=== PATIENT | male | born 1995 | race Caucasian/White ===

== ENCOUNTER 2016-08-22 18:53 | Emergency (ER) | payer OTHER ==
--- NOTE | 2016-08-22 19:16 | ER Document Report ---
ED General - General Stated Complaint: POSSIBLE SEIZURE Time seen by provider: 19:13 Mode of Arrival: Medic Information source: Patient Notes: This is a 21 year old man with a history of multiple concussions in the past was brought in by EMS after a possible seizure at work. 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 He went to work at 5 PM and at 6 PM, coworkers report that he was standing by the girl and became "red" and then "riged" and then collapsed with seizure activity. Patient states he does not remember the event. TRAVEL OUTSIDE OF THE [place] IN LAST 30 DAYS: No - HPI Onset: Just prior to arrival Onset/Duration: Sudden Quality of pain: No pain Severity: None Pain Level: Denies Associated symptoms: denies: Chills, Fever Exacerbated by: Denies Relieved by: Denies Similar symptoms previously: No Recently seen / treated by doctor: No - Related Data Allergies/Adverse Reactions: No Known Allergies Allergy (Verified 11/05/15 10:52) Past Medical History - General Information source: Patient - Social History Smoking Status: Never Smoker Cigarette use (# per day): No Chew tobacco use (# tins/day): No Frequency of alcohol use: None Drug Abuse: denies: Cocaine, Marijuana, Methamphetamine Family History: Reviewed & Not Pertinent Patient has suicidal ideation: No Patient has homicidal ideation: No - Medical History Medical History: Negative Neurological Medical History: Reports: Other - Concussions in the past Past Surgical History: Reports: Hx Orthopedic Surgery - left hand, Hx Tonsillectomy - adnoidectomy - Immunizations Hx Diphtheria, Pertussis, Tetanus Vaccination: Yes Review of Systems - Review of Systems Notes: Review of systems: Constitutional: Denies fever, chills. EENT: Denies ear pain, sinus tenderness, throat pain, throat swelling. Cardiovascular: Denies chest pain, palpitations, dyspnea or edema. Respiratory: Denies wheezing, cough, hemoptysis. Abdomen: Denies abdominal pain, nausea, vomiting, diarrhea. Denies BRBPR or melena. Genitourinary: Denies dysuria, pyuria, hematuria, flank pain. Musculoskeletal: denies joint pain or swelling, denies back pain. Neurologic: He does report a headache, no photophobia, neck stiffness, weakness. Denies loss of bowel or bladder function. Denies saddle anesthesia. No incontinence. Skin: Denies rash, lesions. Physical Exam - Vital signs Vitals: Temp Pulse Resp BP Pulse Ox 98.0 F 87 20 118/65 98 08/22/16 19:01 08/22/16 19:01 08/22/16 19:01 08/22/16 19:01 08/22/16 19:01 Notes: Physical exam: GENERAL: 21-year-old man, alert and oriented 3, no acute distress. HEAD: Normocephalic, patient does have some small contusion in the right upper periorbital area. EYES: Pupils equal round and reactive to light, extraocular movements intact, sclera anicteric, conjunctiva are normal. ENT: TMs normal, nares patent, oropharynx clear without exudates. Moist mucous membranes. NECK: Normal range of motion, supple without lymphadenopathy or JVD. LUNGS: Breath sounds clear to auscultation bilaterally and equal. No wheezes rales or rhonchi. HEART: Regular rate and rhythm without murmurs, rubs or gallops. ABDOMEN: Soft, normoactive bowel sounds. No tenderness to palpation. No guarding, no rebound. No masses appreciated. EXTREMITIES: Normal range of motion, no pitting or edema. No clubbing or cyanosis. NEUROLOGICAL: Cranial nerves II through XII grossly intact. Motor 5 over 5, sensory grossly intact, cerebellar intact, Normal speech. PSYCH: Normal mood, normal affect. SKIN: Warm, Dry, normal turgor, no rashes or lesions noted. Course - Re-evaluation Re-evalutation: 08/22/16 23:58 I've had a long discussion with the patient. He adamantly denies any alcohol, drug us. He does appear somewhat evasive. I think he may have had a seizure tonight and I think his had lack of sleep and his urine tox screen was positive for cocaine. While this study was not confirmed, I'm not sure it needs to be. The patient is denying using this drug. I have reiterated to him that lack of sleep, excessive stress and bad habits (such as drug use) will contribute to seizure activity. He does have a history of multiple concussions and he may have a lower threshold for seizures. I have referred him to a neurologist for follow-up. - Vital Signs Vital signs: Temp Pulse Resp BP Pulse Ox 97.7 F 87 16 121/79 96 08/22/16 20:04 08/22/16 19:01 08/22/16 19:30 08/22/16 20:01 08/22/16 20:01 - Laboratory Result Diagrams: 08/22/16 19:45 08/22/16 19:45 Laboratory results interpreted by me: 08/22/16 08/22/16 19:45 20:20 WBC 12.6 H Seg Neutrophils % 81.2 H Lymphocytes % 10.5 L Absolute Neutrophils 10.2 H Urine Ketones TRACE H - Diagnostic Test Radiology reviewed: Image reviewed, Reports reviewed - CT of the head shows no acute bleed or mass effect. Discharge - Discharge Clinical Impression: Seizure Condition: Stable Disposition: HOME, SELF-CARE Instructions: New Seizure ([facility]) Additional Instructions: Recommendations: You have a history of multiple concussions in the past, it is important that you get: Good sleep (avoid sleep deprivation, this lowers the seizure threshold). Avoid excessive stress. Eat well Avoid any bad habits I would like you to follow-up with a neurologist: I gave the number for Dr. Freire. Return to work on Wednesday. Rest tomorrow. Return to the emergency room for any problems. Forms: Return to Work Referrals: WENDIE MARCOS DO [Primary Care Provider] - Follow up in 3-5 days BELGICA FREIRE MD [ACTIVE STAFF] - Follow up as needed (Call the office on Wednesday for the next available appointment.)
[2016-08-22 19:59] LABS: ABSOLUTE EOSINOPHILS # (AUTO) 0.1 10^3/uL (0.0-0.6); ABSOLUTE LYMPHOCYTES (AUTO) 1.3 10^3/uL (0.5-4.7); ABSOLUTE MONOCYTES (AUTO) 0.9 10^3/uL (0.1-1.4); ABSOLUTE NEUT (AUTO) 10.2 10^3/uL (1.7-8.2); BASOPHILS % (AUTO) 0.3 % (0-2); EOSINOPHILS % (AUTO) 0.5 % (0-6); HEMATOCRIT 46.2 % (37.9-51.0); HEMOGLOBIN 15.7 g/dL (13.5-17.0); HGB HCT DIFFERENCE 0.9; LYMPHOCYTES % (AUTO) 10.5 % (13-45); MEAN CORPUSCULAR HEMOGLOBIN 32.1 pg (27.0-33.4); MEAN CORPUSCULAR HGB CONC 34.1 g/dL (32.0-36.0); MEAN CORPUSCULAR VOLUME 94 fl (80-97); MONOCYTES % (AUTO) 7.5 % (3-13); RED CELL DISTRIBUTION WIDTH 12.9 % (11.5-14.0); SEGMENTED NEUTROPHILS % (AUTO) 81.2 % (42-78); WHITE BLOOD COUNT 12.6 10^3/uL (4.0-10.5)
[2016-08-22] MEDS ORDERED: ACETAMINOPHEN 325 MG TABLET PO ONE (19:59)
[2016-08-22] MEDS ORDERED: LORAZEPAM INJ 2 MG/1 ML VIAL IV ONE (19:59)
[2016-08-22] MEDS ORDERED: NORMAL SALINE 1000 ML 1,000 ML IV PRN (20:27)
[2016-08-22 20:33] LABS: APPEARANCE,URINE CLEAR; BILIRUBIN,URINE NEGATIVE (NEGATIVE); GLUCOSE, URINE NEGATIVE (NEGATIVE); KETONES,URINE TRACE mg/dL (NEGATIVE); LEUKOCYTE ESTERASE,URINE NEGATIVE (NEGATIVE); NITRITE,URINE NEGATIVE (NEGATIVE); PROTEIN,URINE NEGATIVE (NEGATIVE); UROBILINOGEN,URINE NEGATIVE mg/dL (<2.0)
[2016-08-22 20:33] LABS: ALANINE AMINOTRANSFERASE 43 U/L (21-72); ALBUMIN 4.9 g/dL (3.5-5.0); ALKALINE PHOSPHATASE 54 U/L (38-126); ANION GAP 13 (5-19); ASPARTATE AMINO TRANSFERASE 30 U/L (17-59); BILIRUBIN,TOTAL 0.8 mg/dL (0.2-1.3); BLOOD UREA NITROGEN 14 mg/dL (7-20); CARBON DIOXIDE 25 mmol/L (22-30); CHLORIDE 102 mmol/L (98-107); CREATININE RESULT 1.04 mg/dL (0.52-1.25); GLUCOSE 99 mg/dL (75-110); POTASSIUM 4.6 mmol/L (3.6-5.0); SODIUM 139.6 mmol/L (137-145); TOTAL PROTEIN 7.5 g/dL (6.3-8.2)
[2016-08-22 20:46] LABS: URINE BARBITURATES SCREEN NEGATIVE; URINE METHADONE SCREEN NEGATIVE; URINE OPIATES LOW NEGATIVE; URINE PHENCYCLIDINE SCREEN NEGATIVE
[2016-08-23 00:03] VITALS: BP 123/80
== END 2016-08-23 00:10 | disposition home or self-care (01) ==
LOC: ER 18:53
DX: S00.11XA Contusion of right eyelid and periocular area, initial encounter (principal); X58.XXXA Exposure to other specified factors, initial encounter; Y93.89 Activity, other specified; Y99.0 Civilian activity done for income or pay; R56.9 Unspecified convulsions; R51 Headache; Z87.820 Personal history of traumatic brain injury
CPT/HCPCS: 99285; 96361; 96374; 36415; 85025; 80053; 81001; 80307; 70450; J2060; J7030

== ENCOUNTER 2016-09-25 18:49 | Emergency (ER) | payer OTHER ==
--- NOTE | 2016-09-25 18:54 | ER Document Report ---
ED Trauma/MVC - General Stated Complaint: EYE LACERATION Time Seen by Provider: 09/25/16 18:53 Mode of Arrival: Medic Information source: Emergency Med Personnel TRAVEL OUTSIDE OF THE [place] IN LAST 30 DAYS: No - HPI Patient complains to provider of: seizure, head injury, eyebrow laceration Occurred: Just prior to arrival Where: Work Mechanism: Fall Loss of consciousness: Brief Quality of pain: Achy Location of injury/pain: Face, Head Prehospital interventions: C-collar, Backboard Notes: Patient is a 21-year-old male with a history of seizures in the past who presents to the emergency room via EMS as a TRAUMA ALERT for head injury with confusion, apparently patient had a seizure while at work, fell and hit his head on the sink, causing a laceration to the right eyebrow, and has been postictal since then, he was combative with EMS, and took his c-collar off prior to arrival in the emergency room, patient does have a history of similar episode which he was treated in this emergency room for, he does admit to lack of sleep over the last 24 hours, as he was starting a new job today, on his previous visit he was also positive for cocaine Tolley Coma Scale Eye Opening: Spontaneous Tolley Coma Scale Verbal: Confused Tolley Coma Scale Motor: Obeys Commands Emily Coma Scale Total: 14 - Related Data Allergies/Adverse Reactions: No Known Allergies Allergy (Verified 09/25/16 19:50) Past Medical History - General Information source: Patient - Social History Smoking Status: Unknown if Ever Smoked Family History: Reviewed & Not Pertinent Past Surgical History: Reports: Hx Orthopedic Surgery - left hand, Hx Tonsillectomy - adnoidectomy - Immunizations Hx Diphtheria, Pertussis, Tetanus Vaccination: Yes Review of Systems - Review of Systems Constitutional: No symptoms reported EENT: No symptoms reported Cardiovascular: No symptoms reported Respiratory: No symptoms reported Gastrointestinal: No symptoms reported Genitourinary: No symptoms reported Male Genitourinary: No symptoms reported Musculoskeletal: See HPI Skin: See HPI Hematologic/Lymphatic: No symptoms reported Neurological/Psychological: Seizure -: Yes All other systems reviewed and negative Physical Exam - Vital signs Vitals: Resp 18 09/25/16 18:50 Interpretation: Normal - General General appearance: Alert In distress: Mild - Confused, postictal - HEENT Head: Normocephalic, Other - 4 cm laceration in right eyebrow, 1 cm superficial laceration to nasal bridge Eyes: Normal Conjunctiva: Normal Extraocular movements intact: Yes Eyelashes: Normal Pupils: PERRL Ears: Normal External canal: Normal Tympanic membrane: Normal Nasal: Other - 1 cm laceration to nasal bridge Mucous membranes: Normal Pharynx: Normal Neck: Other - Paraspinal muscle tenderness, no midline tenderness or bony deformity - Respiratory Respiratory status: No respiratory distress Chest status: Nontender Breath sounds: Normal Chest palpation: Normal - Cardiovascular Rhythm: Regular Heart sounds: Normal auscultation Murmur: No - Abdominal Inspection: Normal Distension: No distension Bowel sounds: Normal Tenderness: Nontender Organomegaly: No organomegaly - Back Back: Normal, Nontender - Extremities General upper extremity: Normal inspection, Nontender, Normal color, Normal ROM , Normal temperature General lower extremity: Normal inspection, Nontender, Normal color, Normal ROM , Normal temperature, Normal weight bearing. No: Gordo's sign - Neurological Neuro grossly intact: Yes Cognition: Normal Orientation: AAOx4 Emily Coma Scale Eye Opening: Spontaneous Tolley Coma Scale Verbal: Oriented Emily Coma Scale Motor: Obeys Commands Tolley Coma Scale Total: 15 Speech: Normal Motor strength normal: LUE, RUE, LLE, RLE Sensory: Normal - Psychological Associated symptoms: Normal affect, Normal mood - Skin Skin Temperature: Warm Skin Moisture: Dry Skin Color: Normal Course - Re-evaluation Re-evalutation: 09/26/16 02:57 Patient feeling much better, wounds were repaired using Dermabond and sutures, see procedure notes, imaging findings were discussed with patient and family members at bedside, he does report feeling much better and was able to ambulate without difficulty in the emergency room, patient discharged with pain medication and information for follow-up as well as instructions for wound care , patient and family members acknowledge understanding and agreement with this plan - Vital Signs Vital signs: Temp Pulse Resp BP Pulse Ox 98.1 F 16 128/81 H 96 09/25/16 19:01 09/25/16 23:01 09/25/16 23:01 09/25/16 23:01 - Laboratory Result Diagrams: 09/25/16 19:00 09/25/16 19:00 Laboratory results interpreted by me: 09/25/16 09/25/16 19:00 19:00 Monocytes % 13.3 H Carbon Dioxide 15 L Anion Gap 24 H Glucose 116 H Calcium 10.3 H Albumin 5.1 H - Diagnostic Test Radiology reviewed: Image reviewed, Reports reviewed Procedures - Laceration/Wound Repair Mid-nasal bridge Time completed: 21:39 Wound length (cm): 1 Wound's Depth, Shape: Irregular Laceration pre-procedure: Sterile PPE donned Wound explored: Clean Wound Repaired With: Dermabond Post-procedure NV exam normal: Yes Complications: No Adult Head Front/Back picture: 1 - 1.5 cm laceration Right Time completed: 21:40 Wound length (cm): 4 Wound's Depth, Shape: Irregular - Marne-shaped Laceration pre-procedure: Sterile PPE donned, Chloraprep applied, Sterile drapes applied Anesthetic type: 1% Lidocaine w/epi Volume Anesthetic (mLs): 8 Wound explored: Clean Irrigated w/ Saline (mLs): 300 Wound Repaired With: Sutures Suture Size/Type: 6:0, Nylon Number of Sutures: 6 Layer Closure?: Yes Deep Layer Suture Size/Type: 5:0, Other - Vicryl Number Deep Layer Sutures: 2 Post-procedure wound care: Sterile dressing applied Post-procedure NV exam normal: Yes Complications: No Adult Head Front/Back picture: 1 - 4 cm laceration Discharge - Discharge Clinical Impression: Seizure Head injury Qualifiers: Encounter type: initial encounter Qualified Code(s): S09.90XA - Unspecified injury of head, initial encounter Condition: Stable Disposition: HOME, SELF-CARE Instructions: Facial Laceration ([facility]), Head Injury Precautions ([facility]), Laceration Care ([facility]), New Seizure ([facility]), Neurologist Additional Instructions: Follow-up with a primary care provider and neurologist in the next 2-3 days. Return to the emergency room immediately if symptoms worsen or any additional concerns. Keep wound clean and covered with antibiotic ointment and a clean dressing. Gently rinse with warm water and soap twice daily. Sutures to be removed in 10- 14 days. Return to the emergency room immediately if symptoms worsen or any additional concerns. Forms: Return to Work
[2016-09-25] MEDS ORDERED: LORAZEPAM INJ 2 MG/1 ML VIAL IV ONE (18:58)
[2016-09-25 19:13] LABS: ABSOLUTE LYMPHOCYTES (AUTO) 1.6 10^3/uL (0.5-4.7); ABSOLUTE MONOCYTES (AUTO) 0.8 10^3/uL (0.1-1.4); ABSOLUTE NEUT (AUTO) 3.3 10^3/uL (1.7-8.2); BASOPHILS % (AUTO) 0.3 % (0-2); EOSINOPHILS % (AUTO) 0.3 % (0-6); HEMATOCRIT 45.5 % (37.9-51.0); HEMOGLOBIN 15.5 g/dL (13.5-17.0); LYMPHOCYTES % (AUTO) 28.5 % (13-45); MEAN CORPUSCULAR HEMOGLOBIN 32.5 pg (27.0-33.4); MEAN CORPUSCULAR VOLUME 96 fl (80-97); MONOCYTES % (AUTO) 13.3 % (3-13); RED BLOOD COUNT 4.76 10^6/uL (4.35-5.55); RED CELL DISTRIBUTION WIDTH 13.5 % (11.5-14.0); SEGMENTED NEUTROPHILS % (AUTO) 57.6 % (42-78); WHITE BLOOD COUNT 5.8 10^3/uL (4.0-10.5)
[2016-09-25 19:29] LABS: ALANINE AMINOTRANSFERASE 47 U/L (21-72); ALBUMIN 5.1 g/dL (3.5-5.0); ALKALINE PHOSPHATASE 55 U/L (38-126); ASPARTATE AMINO TRANSFERASE 47 U/L (17-59); BILIRUBIN,TOTAL 0.7 mg/dL (0.2-1.3); BLOOD UREA NITROGEN 9 mg/dL (7-20); CALCIUM 10.3 mg/dL (8.4-10.2); CHLORIDE 104 mmol/L (98-107); CREATININE RESULT 1.06 mg/dL (0.52-1.25); GLUCOSE 116 mg/dL (75-110); MAGNESIUM 2.1 mg/dL (1.6-2.3); TOTAL PROTEIN 7.9 g/dL (6.3-8.2)
[2016-09-25 19:30] LABS: ALCOHOL < 10 mg/dL (NONE DETECTED)
[2016-09-25 19:37] LABS: CARBON DIOXIDE 15 mmol/L (22-30); SODIUM 142.8 mmol/L (137-145)
[2016-09-25 19:42] LABS: ANION GAP 24 (5-19)
[2016-09-25] MEDS ORDERED: NORMAL SALINE 1000 ML 1,000 ML IV PRN ×2 (19:43→22:21)
[2016-09-25] MEDS ORDERED: MORPHINE SULFATE 10 MG/ML INJ IV ONE ×2 (19:53→20:27)
[2016-09-25] MEDS ORDERED: DIPH/PERTUSS(ACELL)/TETANUS VAC/PF 0.5 ML SYR (>=10YO) IM ONE (19:54)
[2016-09-25] MEDS ORDERED: MORPHINE SULFATE 10 MG/ML INJ ONE (19:57)
[2016-09-25] MEDS ORDERED: LIDOCAINE 1%/EPINEPHRINE INJ 20 ML VIAL INJ ONE (20:20)
[2016-09-25] MEDS ORDERED: LIDOCAINE 2%/EPINEPHRINE INJ 20 ML VIAL INJ ONE (20:51)
[2016-09-25] MEDS ORDERED: HYDROCODONE/ACETAMINOPHEN 5-325 MG 6 TAB/DSPK PO PRN (21:48)
[2016-09-25 23:26] VITALS: BP 128/81
== END 2016-09-25 23:30 | disposition home or self-care (01) ==
LOC: ER 18:49
PROC: 0JQ10ZZ Repair Face Subcutaneous Tissue and Fascia, Open Approach (ICD-10-PCS; principal; 2016-09-25)
DX: S01.111A Laceration without foreign body of right eyelid and periocular area, initial encounter (principal); S01.21XA Laceration without foreign body of nose, initial encounter; W18.39XA Other fall on same level, initial encounter; Y99.0 Civilian activity done for income or pay; R56.9 Unspecified convulsions
CPT/HCPCS: 99284; 96361; 96374; 96375; 36415; 80307; 83735; 85025; 80053; 70450; 72125; 12052; J3490; J2270; J2060; J7030

== ENCOUNTER 2018-01-13 21:19 | Emergency (ER) | payer SELFPAY ==
[2018-01-13] MEDS ORDERED: HYDROMORPHONE HCL INJ/PF 2 MG/ML AMPULE IV ONE (22:16)
[2018-01-13] MEDS ORDERED: LEVETIRACETAM 1000 MG/NACL-ISO 1,000 MG/100 ML RTUPB IV ONE (22:16)
[2018-01-13 22:43] LABS: ABSOLUTE LYMPHOCYTES (AUTO) 1.1 10^3/uL (0.5-4.7); ABSOLUTE MONOCYTES (AUTO) 0.9 10^3/uL (0.1-1.4); ABSOLUTE NEUT (AUTO) 17.2 10^3/uL (1.7-8.2); BASOPHILS % (AUTO) 0.1 % (0-2); EOSINOPHILS % (AUTO) 0.2 % (0-6); HEMATOCRIT 46.7 % (37.9-51.0); HEMOGLOBIN 16.3 g/dL (13.5-17.0); LYMPHOCYTES % (AUTO) 5.8 % (13-45); MEAN CORPUSCULAR HEMOGLOBIN 32.9 pg (27.0-33.4); MEAN CORPUSCULAR HGB CONC 34.9 g/dL (32.0-36.0); MEAN CORPUSCULAR VOLUME 94 fl (80-97); MONOCYTES % (AUTO) 4.9 % (3-13); PLATELET COUNT 274 10^3/uL (150-450); RED BLOOD COUNT 4.96 10^6/uL (4.35-5.55); RED CELL DISTRIBUTION WIDTH 12.8 % (11.5-14.0); TOTAL CELLS COUNTED % (AUTO) 100 %; WHITE BLOOD COUNT 19.3 10^3/uL (4.0-10.5)
--- NOTE | 2018-01-13 22:57 | ER Document Report ---
ED General - General Stated Complaint: POSSIBLE SEIZURE Time Seen by Provider: 01/13/18 22:04 Notes: Patient is a 22-year-old male who presents with complaint of a seizure. He does have a history of epilepsy. He is followed by Dr. Murrell. He is on Keppra thousand milligrams twice a day. He did not take any of his Keppra today. He had a seizure. When he had a seizure he hit the ground and has a lot of pain in his left shoulder, head, and jaw. He denies any neck pain. No chest pain. No abdominal pain. No recent fevers or infections. No other complaints at this time. He does not take any blood thinning medications. TRAVEL OUTSIDE OF THE [place] IN LAST 30 DAYS: No - Related Data Allergies/Adverse Reactions: No Known Allergies Allergy (Verified 09/25/16 19:50) Past Medical History - Social History Smoking Status: Unknown if Ever Smoked Frequency of alcohol use: None Drug Abuse: None Family History: Reviewed & Not Pertinent Past Surgical History: Reports: Hx Orthopedic Surgery - left hand, Hx Tonsillectomy - adnoidectomy - Immunizations Hx Diphtheria, Pertussis, Tetanus Vaccination: Yes Review of Systems - Review of Systems Notes: My Normal Review Basic REVIEW OF SYSTEMS: CONSTITUTIONAL : Denies fever, chills, or sweats. Denies recent illness. EENT: Denies eye, ear, throat, or mouth pain or symptoms. Denies nasal or sinus congestion. CARDIOVASCULAR: Denies chest pain. RESPIRATORY: Denies cough, cold, or chest congestion. Denies shortness of breath, difficulty breathing, or wheezing. GASTROINTESTINAL: Denies abdominal pain. Denies nausea, vomiting, or diarrhea. Denies constipation. Last BM: GENITOURINARY: Denies difficulty urinating, painful urination, burning, frequency, or blood in urine. MUSCULOSKELETAL: Denies neck or back pain or joint pain or swelling. SKIN: Denies rash or skin lesions. NEUROLOGICAL: Had a seizure. Has a headache. Denies weakness or paralysis or loss of use of either side. Denies problems with gait or speech. Denies sensory or motor loss. ALL OTHER SYSTEMS REVIEWED AND NEGATIVE. Physical Exam - Vital signs Vitals: Pulse Ox 95 01/13/18 21:43 - Notes Notes: General Appearance: Well nourished, alert, cooperative, no acute distress, moderate obvious discomfort. Vitals: reviewed, See vital signs table. Head: Hematoma of the forehead. Pain with opening and closing the jaw. Eyes: PERRL, EOMI, Conjuctiva clear Mouth: No decreasd moisture Throat: No tonsillar inflammation, No airway obstruction, No lymphadenopathy Neck: Supple, no neck tenderness, no step-offs or deformities. Full range of motion of neck without tenderness. Lungs: No wheezing, No rales, No rhonci, No accessory muscle use, good air exchange bilaterally. Heart: Normal rate, Regular rythm, No murmur, no rub Abdomen: Normal BS, soft, No rigidity, No abdominal tenderness, No guarding, no rebound, no abdominal masses, no organomegaly Extremities: strength 5/5 in all extremities, good pulses in all extremities, deformity to left shoulder. Pain with any touch in the left shoulder orattempt of moving the left shoulder., no edema. Skin: warm, dry, appropriate color, no rash Neuro: speech clear, oriented x 3, normal affect, responds appropriately to questions. Course - Re-evaluation Re-evalutation: 01/13/18 23:04 Patient does have shoulder dislocation I will require sedation. I did review the risks and benefits of sedation with him and his mother. They are agreeable to sedation. Patient currently is feeling well except for shoulder pain and has not had any further seizure activity. He is currently receiving the Keppra. 01/14/18 00:57 Patient received thousand milligrams Keppra IV. He said any further seizures. He takes thousand milligrams in the morning and evening. We will have him take 500 mg orally before going home. He did receive procedural sedation to recover fully from it. He is awake alert and talking appropriately now. Shoulder is back in place. He has no numbness or weakness into his left hand. Patient is placed in a shoulder immobilizer and will follow up with orthopedics. Patient encouraged to return to ER if he has recurrent dislocation, recurrent seizures, or feels unwell. Patient agrees with plan will be discharged home. Patient talked to about the importance of not missing his seizure medications as this is most likely why he had a seizure tonight. Dictation of this chart was performed using voice recognition software; therefore, there may be some unintended grammatical errors. - Vital Signs Vital signs: Temp Pulse Resp BP Pulse Ox 98.2 F 137/91 H 100 01/13/18 21:48 01/14/18 00:31 01/14/18 00:31 - Laboratory Result Diagrams: 01/13/18 22:35 01/13/18 22:35 Laboratory results interpreted by me: 01/13/18 22:35 WBC 19.3 H Seg Neutrophils % 89.0 H Lymphocytes % 5.8 L Absolute Neutrophils 17.2 H Procedures - Conscious Sedation Conscious sedation Consent obtained: Yes Prior complications: Procedural sedation Normal healthy pt.: P1. - ASA Classification Mallampati Classification: Class 1 Used during procedure: Suction available, IV access obtained, Pulse ox on pt., anthropometrist on pt. Medications administered: Etomidate, Diprivan Reversal agents: None I personally performed/intraservice time: Sedation, Procedure, 31-45 min Complications: No Notes: Patient given a total of 200mg of Propofol and was still talking and not adequately sedated. Patient therefore given 10mg of Etomidate which provided adequate sedation. Patient recovered full from sedation without complications. Patient's mother is driving him home. - Joint Reduction/Fracture Care Left Shoulder Consent obtained: Yes Conscious sedation: Yes Pre-procedure NV exam: Yes Fracture: Closed Manipulation comment: abduction and rotation Post-procedure NV exam: Yes - normal Post-reduction x-ray: Joint reduced Reduction attempts: 1 Complications: No Discharge - Discharge Clinical Impression: Seizure Shoulder dislocation Qualifiers: Encounter type: initial encounter Laterality: left Qualified Code(s): S43.005A - Unspecified dislocation of left shoulder joint, initial encounter Nasal bone fracture Qualifiers: Encounter type: initial encounter Fracture type: closed Qualified Code(s): S02.2XXA - Fracture of nasal bones, initial encounter for closed fracture Instructions: Oral Narcotic Medication ([facility]), Sling as Treatment ([facility]) Additional Instructions: Please use the sling when up and moving around and when sleeping to help avoid recurrent dislocation for the next 3-5 days. Please follow up wiht the orthopedist in 3-5 days for reevaluation. please do not miss your dosages of your seizure medication. please follow up noé Murrell. Call his office this am to make a follow up appointment. please return to the ER immediately if you develop fevers, recurrent seizures, recurrent shoulder pain, numbness into your hand, or if you feel unwell. Do not drive. Forms: Return to Work Referrals: NEGRITA JOAQUIN MD [ACTIVE STAFF] - Follow up as needed
[2018-01-13] MEDS ORDERED: PROPOFOL INJ 200 MG/20 ML VIAL IV ONE (22:58)
[2018-01-13] MEDS ORDERED: NORMAL SALINE 1000 ML 1,000 ML IV ONE (22:59)
--- NOTE | 2018-01-13 23:02 | RADIOLOGY REPORT (SQ) ---
EXAM DESCRIPTION: CT HEAD WITHOUT IV CONTRAST COMPLETED DATE/TME: 01/13/2018 22:15 EXAM DESCRIPTION: CLINICAL HISTORY: SEIZURE THEN FALL COMPARISON: None Available TECHNIQUE: Contiguous axial CT images of the head were obtained. Coronal and sagittal reconstructions were created from the axial data. This exam was performed according to our departmental dose-optimization program, which includes automated exposure control, adjustment of the mA and/or kV according to patient size and/or use of iterative reconstruction technique. FINDINGS: There is no evidence of acute mass, mass effect, midline shift or hemorrhage. The ventricles and extra-axial CSF spaces are unremarkable. The brain parenchyma appears normal for the patient's age. No acute abnormalities of the bones is seen. IMPRESSION: No acute intracranial abnormality.
--- NOTE | 2018-01-13 23:04 | RADIOLOGY REPORT (SQ) ---
EXAM DESCRIPTION: CT maxillofacial bones without contrast CLINICAL HISTORY: 22 years Male SEIZURE THEN FALL COMPARISON: 11/05/2015 COMPLETED DATE/TME: 01/13/2018 22:15 TECHNIQUE: Contiguous axial images obtained through the maxillofacial region without IV contrast. Reformatted images obtained. This exam was performed according to our department optimization program which includes automated exposure control, adjustment of the mA and/or kv according to patient size and/or use of iterative reconstruction technique. FINDINGS: The paranasal sinuses are free from mucosal thickening or air-fluid levels. Zygomatic arches are intact. Fragmentation of the anterior nasal spine which appears similar to the previous study. Small area of irregularity along the anterior aspect of the right nasal bone which was not present on the previous examination may reflect acute nondisplaced fracture. Mandible appears intact. No acute orbital fracture. IMPRESSION: New area of lucency along the anterior right nasal bone not clearly present on the patient's prior examination. 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
[2018-01-13 23:07] LABS: ANION GAP 10 (5-19); BLOOD UREA NITROGEN 11 mg/dL (7-20); CALCIUM 10.2 mg/dL (8.4-10.2); CARBON DIOXIDE 27 mmol/L (22-30); CHLORIDE 106 mmol/L (98-107); GLUCOSE 94 mg/dL (75-110); POTASSIUM 4.3 mmol/L (3.6-5.0); SODIUM 143.4 mmol/L (137-145)
--- NOTE | 2018-01-13 23:12 | RADIOLOGY REPORT (SQ) ---
EXAM DESCRIPTION: XR SHOULDER 2 OR MORE VIEWS COMPLETED DATE/TME: 01/13/2018 22:15 EXAM DESCRIPTION: CLINICAL HISTORY: trauma COMPARISON: None FINDINGS: 2 view(s) submitted. There is anterior-inferior dislocation of the left humerus relative to the glenoid. No definite fracture. IMPRESSION: Left shoulder dislocation.
[2018-01-14] MEDS ORDERED: PROPOFOL INJ 200 MG/20 ML VIAL IV ONE (00:03)
[2018-01-14] MEDS ORDERED: ETOMIDATE INJ/PF 20 MG/10 ML SDV IV ONE ×2 (00:05→00:54)
--- NOTE | 2018-01-14 00:52 | RADIOLOGY REPORT (SQ) ---
EXAM DESCRIPTION: XR SHOULDER 1 VIEW COMPLETED DATE/TME: 01/14/2018 00:15 CLINICAL HISTORY: 22 years, Male, post reduction COMPARISON: 01/13/2018 FINDINGS: Single view of the left shoulder. The left glenohumeral joint is now in normal anatomic alignment. No definite fracture identified. No definite abnormality of the left hemithorax identified. IMPRESSION: 1. Left glenohumeral joint now in normal anatomic alignment. 2010 [employer]- All Rights Reserved
[2018-01-14] MEDS ORDERED: HYDROCODONE/ACETAMINOPHEN 5-325 MG (6 TAB/ER DISP) PO PRN (00:53)
[2018-01-14 02:58] VITALS: BP 129/79
== END 2018-01-14 03:05 | disposition home or self-care (01) ==
LOC: ER 21:19
DX: G40.909 Epilepsy, unspecified, not intractable, without status epilepticus (principal); T42.6X6A Underdosing of other antiepileptic and sedative-hypnotic drugs, initial encounter; Z91.14 Patient's other noncompliance with medication regimen; S02.2XXA Fracture of nasal bones, initial encounter for closed fracture; S43.015A Anterior dislocation of left humerus, initial encounter; S43.035A Inferior dislocation of left humerus, initial encounter; R51 Headache; R68.84 Jaw pain; M25.512 Pain in left shoulder; W19.XXXA Unspecified fall, initial encounter; Y92.009 Unspecified place in unspecified non-institutional (private) residence as the place of occurrence of the external cause
CPT/HCPCS: 99285; 96361; 99153; 99152; 96375; 96365; 36415; 83735; 85025; 80048; 73020; 73030; 70450; 70486; 23650; L3650; J1170; J7030; J2704 ×2; J1953

== ENCOUNTER 2018-06-13 07:58 | Emergency (ER) | payer SELFPAY ==
[2018-06-13] MEDS ORDERED: NORMAL SALINE 1000 ML 1,000 ML IV ONE (08:43)
--- NOTE | 2018-06-13 08:46 | ER Document Report ---
ED Seizure - General Chief Complaint: Seizure Stated Complaint: POSSIBLE SEIZURE Time Seen by Provider: 06/13/18 08:35 - HPI Notes: Patient is a 23-year-old male with epilepsy that presents to the emergency department for chief complaint of seizure. Patient was recently diagnosed with epilepsy in the last year. He states he has had 4 seizures total the last one was in February 2018. Today he was standing in the shower and felt a euphoric lightheadedness and then fell down in the shower and had a seizure. His mother heard him fall and when she came in he was still twitching and not responding for a few seconds. They believe the seizure was self-limited and lasted maybe 1-2 minutes total. Patient did not bite his tongue or have urinary incontinence. He has been compliant with his Keppra and took his dose already this morning. Patient has a history of left shoulder dislocation after seizure previously. He is complaining of some tenderness in the left shoulder. His pain is achy and worse with movement. He has not taken any [id number] medications for pain relief today. He is also endorsing pain on the back of his head from the fall. He denies any vision changes, numbness or weakness, chest pain, shortness of breath, nausea vomiting or diarrhea. Past Medical History: Epilepsy Past Surgical History: hand surgery Social History: Denies drugs alcohol or tobacco use Family History: Reviewed and noncontributory for presenting illness Allergies: Reviewed, see documented allergy list. REVIEW OF SYSTEMS: CONSTITUTIONAL : No fever No chills No diaphoresis No recent illness EENT: No vision changes No congestion No sore throat CARDIOVASCULAR: No chest pain No palpitations RESPIRATORY: No shortness of breath No cough No difficulty breathing GASTROINTESTINAL: No abdominal pain No nausea No vomiting No diarrhea GENITOURINARY: No dysuria No hematuria No difficulty urinating MUSCULOSKELETAL: No back pain No leg pain arm pain SKIN: No rashes No lesions LYMPHATIC: No swollen, enlarged glands. NEUROLOGICAL: No lightheadedness headache No weakness No paresthesias Seizure PSYCHIATRIC: No anxiety No depression PHYSICAL EXAMINATION: Vital signs reviewed, nursing noted reviewed. GENERAL: Well-appearing, well-nourished and in no acute distress. HEAD: Atraumatic, normocephalic. No cephalhematoma or abrasions EYES: Eyes appear normal, extraocular movements intact, sclera anicteric, conjunctiva are normal. ENT: nares patent, oropharynx clear without exudates. Moist mucous membranes. NECK: Normal range of motion, supple without lymphadenopathy, bilateral paraspinal cervical tenderness, no midline cervical spine tenderness LUNGS: Breath sounds clear to auscultation bilaterally and equal. No wheezes rales or rhonchi. HEART: Regular rate and rhythm without murmurs ABDOMEN: Soft, nontender, normoactive bowel sounds. No rebound, guarding, or rigidity. No masses appreciated. EXTREMITIES: Anterior left shoulder tenderness with normal range of motion and no bony deformity. no pitting or edema. NEUROLOGICAL: No focal neurological deficits. Moves all extremities spontaneously Motor and sensory grossly intact on exam. PSYCH: Normal mood, normal affect. SKIN: Warm, Dry, normal turgor, no rashes or lesions noted on exposed skin - Related Data Allergies/Adverse Reactions: No Known Allergies Allergy (Verified 09/25/16 19:50) Past Medical History - Social History Smoking Status: Never Smoker Family History: Reviewed & Not Pertinent Renal/ Medical History: Denies: Hx Peritoneal Dialysis Past Surgical History: Reports: Hx Orthopedic Surgery - left hand, Hx Tonsillectomy - adnoidectomy - Immunizations Hx Diphtheria, Pertussis, Tetanus Vaccination: Yes Physical Exam - Vital signs Vitals: Temp Pulse Resp BP Pulse Ox 98.4 F 116 H 16 133/67 H 97 06/13/18 08:09 06/13/18 08:09 06/13/18 08:09 06/13/18 08:09 06/13/18 08:09 Course - Re-evaluation Re-evalutation: 06/13/18 08:46 Vitals reviewed. Nursing notes reviewed. Patient placed in seizure precautions. 06/13/18 10:14 Patient reevaluated. He is more alert than at presentation. He had complete resolution of his postictal state. CT scan of his head and cervical spine showed no acute injury. The left shoulder x-ray was negative. Patient has no complaints currently. He has an appointment with his neurologist in the beginning of the June. I encouraged him to call his neurologist for closer follow-up. Keppra level is still pending. Patient discharged home in stable condition with instructions to return if he has a repeat seizure in the next 24 hours or for any new or concerning symptoms. Cervical Spine CT 06/13/18 08:36 IMPRESSION: NO ACUTE OR SIGNIFICANT FINDINGS IN THE CERVICAL SPINE. Head CT 06/13/18 08:36 IMPRESSION: NORMAL BRAIN CT WITHOUT CONTRAST. EVIDENCE OF ACUTE STROKE: NO. Shoulder X-Ray 06/13/18 08:36 IMPRESSION: NEGATIVE STUDY OF THE LEFT SHOULDER. NO RADIOGRAPHIC EVIDENCE OF ACUTE INJURY. - Vital Signs Vital signs: Temp Pulse Resp BP Pulse Ox 98.4 F 116 H 16 133/67 H 97 06/13/18 08:09 06/13/18 08:09 06/13/18 08:09 06/13/18 08:09 06/13/18 08:09 Discharge - Discharge Clinical Impression: Breakthrough seizure Left shoulder pain Qualifiers: Chronicity: acute Qualified Code(s): M25.512 - Pain in left shoulder Closed head injury Qualifiers: Encounter type: initial encounter Qualified Code(s): S09.90XA - Unspecified injury of head, initial encounter Condition: Stable Disposition: HOME, SELF-CARE Instructions: Seizure, Known Epileptic ([facility]), Head Injury Precautions ([facility]) Additional Instructions: Please return to the emergency department if you have any worsening, or concern of your symptoms. Please return to the emergency department if you develop chest pain, difficulty breathing, severe abdominal pain, or ongoing vomiting. Please follow-up with your primary care physician in 2-3 days and any other recommended physicians. If prescribed, take all medications as directed. If you have any questions or concerns do not hesitate to return the emergency department for evaluation. Return to the emergency room if you have another seizure in the next 24 hours or for new concerning symptoms
--- NOTE | 2018-06-13 09:43 | RADIOLOGY REPORT (SQ) ---
EXAM DESCRIPTION: CT HEAD WITHOUT COMPLETED DATE/TIME: 06/13/2018 9:15 am REASON FOR STUDY: trauma COMPARISON: CT brain 01/13/2018, 09/25/2016, 11/05/2015 TECHNIQUE: Axial images acquired through the brain without intravenous contrast. Images reviewed wi th bone, brain and subdural windows. Additional sagittal and coronal reconstructions were generated. Images stored on PACS. All CT scanners at this facility use dose modulation, iterative reconstruction, and/or weight based d osing when appropriate to reduce radiation dose to as low as reasonably achievable (ALARA). [facility]: Dose Right [facility]: CareDose [facility]: Dose Right [facility]: Teradose 4D [facility]: [employer] RADIATION DOSE: CT Rad equipment meets quality standard of care and radiation dose reduction techniq ues were employed. CTDIvol: 48.8 mGy. DLP: 1078 mGy-cm. mGy. LIMITATIONS: None. FINDINGS: VENTRICLES: Normal size and contour. CEREBRUM: No masses. No hemorrhage. No midline shift. No evidence for acute infarction. Normal gra y/white matter differentiation. No areas of low density in the white matter. CEREBELLUM: No masses. No hemorrhage. No alteration of density. No evidence for acute infarction. EXTRAAXIAL SPACES: No fluid collections. No masses. ORBITS AND GLOBE: No intra- or extraconal masses. Normal contour of globe without masses. CALVARIUM: No fracture. PARANASAL SINUSES: No fluid or mucosal thickening. SOFT TISSUES: No mass or hematoma. OTHER: No other significant finding. IMPRESSION: NORMAL BRAIN CT WITHOUT CONTRAST. EVIDENCE OF ACUTE STROKE: NO. COMMENT: Quality ID # [id number]: Final reports with documentation of one or more dose reduction techniques (e.g., Automated exposure control, adjustment of the mA and/or kV according to patient size, use of iterative reconstruction technique) TECHNICAL DOCUMENTATION: JOB ID: [id number] [employer]- All Rights Reserved Reading location - IP/workstation name: [email or web address]
--- NOTE | 2018-06-13 09:46 | RADIOLOGY REPORT (SQ) ---
EXAM DESCRIPTION: CT CERVICAL SPINE WITHOUT COMPLETED DATE/TIME: 06/13/2018 9:15 am REASON FOR STUDY: trauma COMPARISON: CT brain 09/25/2016 TECHNIQUE: Axial images acquired through the cervical spine without intravenous contrast. Images re viewed with lung, soft tissue and bone windows. Reconstructed coronal and sagittal MPR images review ed. Images stored on PACS. All CT scanners at this facility use dose modulation, iterative reconstruction, and/or weight based d osing when appropriate to reduce radiation dose to as low as reasonably achievable (ALARA). [facility]: Dose Right [facility]: CareDose [facility]: Dose Right [facility]: Teradose 4D [facility]: [employer] RADIATION DOSE: CT Rad equipment meets quality standard of care and radiation dose reduction techniq ues were employed. CTDIvol: 19.0 mGy. DLP: 515 mGy-cm. mGy. LIMITATIONS: None. FINDINGS: ALIGNMENT: Anatomic. MINERALIZATION: Normal. VERTEBRAL BODIES: No fractures or dislocation. DISCS: No significant disc disease. FACETS, LATERAL MASSES, POSTERIOR ELEMENTS: No fractures. No dislocation. No acute findings. HARDWARE: None in the spine. VISUALIZED RIBS: No fractures. LUNG APICES AND SOFT TISSUES: No significant or acute findings. OTHER: No other significant finding. IMPRESSION: NO ACUTE OR SIGNIFICANT FINDINGS IN THE CERVICAL SPINE. TECHNICAL DOCUMENTATION: JOB ID: [id number] Quality ID # [id number]: Final reports with documentation of one or more dose reduction techniques (e.g., Au tomated exposure control, adjustment of the mA and/or kV according to patient size, use of iterative reconstruction technique) 2010 [employer]- All Rights Reserved Reading location - IP/workstation name: [email or web address]
--- NOTE | 2018-06-13 09:49 | RADIOLOGY REPORT (SQ) ---
EXAM DESCRIPTION: SHOULDER LEFT 2 OR MORE VIEWS COMPLETED DATE/TIME: 06/13/2018 9:30 am REASON FOR STUDY: trauma injury pain COMPARISON: 01/13/2018 left shoulder two views NUMBER OF VIEWS: Three views. TECHNIQUE: Internal rotation, external rotation, and Y view images acquired of the left shoulder. LIMITATIONS: None. FINDINGS: MINERALIZATION: Normal. BONES: No acute fracture or dislocation. No worrisome bone lesions. JOINTS: No glenohumeral dislocation. No acromioclavicular joint widening VISUALIZED LUNGS AND RIBS: No pneumothorax. No rib fracture. SOFT TISSUES: No radiopaque foreign body. OTHER: No other significant finding. IMPRESSION: NEGATIVE STUDY OF THE LEFT SHOULDER. NO RADIOGRAPHIC EVIDENCE OF ACUTE INJURY. TECHNICAL DOCUMENTATION: JOB ID: [id number] [employer]- All Rights Reserved Reading location - IP/workstation name: [email or web address]
[2018-06-13 10:18] VITALS: BP 116/68
== END 2018-06-13 10:24 | disposition home or self-care (01) ==
LOC: ER 07:58
DX: G40.909 Epilepsy, unspecified, not intractable, without status epilepticus (principal); Z79.899 Other long term (current) drug therapy; S09.90XA Unspecified injury of head, initial encounter; M25.512 Pain in left shoulder; R51 Headache; W18.2XXA Fall in (into) shower or empty bathtub, initial encounter
CPT/HCPCS: 99284; 96360; 36415; 80177; 73030; 70450; 72125; J7030

== ENCOUNTER 2018-09-11 18:55 | Emergency (ER) | payer OTHER ==
[2018-09-11] MEDS ORDERED: LIDOCAINE 1% INJ-PF (10 MG/ML) 30 ML SDV ONE (19:53)
[2018-09-11] MEDS ORDERED: ACETAMINOPHEN 325 MG TABLET PO ONE (21:26)
[2018-09-11] MEDS ORDERED: LEVETIRACETAM 500 MG TABLET PO ONE (21:26)
[2018-09-11 21:54] LABS: ABSOLUTE LYMPHOCYTES (AUTO) 2.4 10^3/uL (0.5-4.7); ABSOLUTE MONOCYTES (AUTO) 0.7 10^3/uL (0.1-1.4); ABSOLUTE NEUT (AUTO) 5.4 10^3/uL (1.7-8.2); BASOPHILS % (AUTO) 0.3 % (0-2); EOSINOPHILS % (AUTO) 0.4 % (0-6); HEMATOCRIT 44.7 % (37.9-51.0); HEMOGLOBIN 15.6 g/dL (13.5-17.0); LYMPHOCYTES % (AUTO) 28.1 % (13-45); MEAN CORPUSCULAR HEMOGLOBIN 32.7 pg (27.0-33.4); MEAN CORPUSCULAR HGB CONC 34.8 g/dL (32.0-36.0); MEAN CORPUSCULAR VOLUME 94 fl (80-97); MONOCYTES % (AUTO) 8.6 % (3-13); PLATELET COUNT 253 10^3/uL (150-450); RED BLOOD COUNT 4.76 10^6/uL (4.35-5.55); RED CELL DISTRIBUTION WIDTH 12.6 % (11.5-14.0); SEGMENTED NEUTROPHILS % (AUTO) 62.6 % (42-78); TOTAL CELLS COUNTED % (AUTO) 100 %; WHITE BLOOD COUNT 8.6 10^3/uL (4.0-10.5)
[2018-09-11 22:08] LABS: ALANINE AMINOTRANSFERASE 48 U/L (21-72); ALBUMIN 4.4 g/dL (3.5-5.0); ALKALINE PHOSPHATASE 44 U/L (38-126); ANION GAP 9 (5-19); ASPARTATE AMINO TRANSFERASE 23 U/L (17-59); BILIRUBIN,DIRECT 0.1 mg/dL (0.0-0.4); BILIRUBIN,TOTAL 0.8 mg/dL (0.2-1.3); BLOOD UREA NITROGEN 10 mg/dL (7-20); CALCIUM 9.7 mg/dL (8.4-10.2); CARBON DIOXIDE 27 mmol/L (22-30); CHLORIDE 105 mmol/L (98-107); GLUCOSE 105 mg/dL (75-110); POTASSIUM 4.1 mmol/L (3.6-5.0); TOTAL PROTEIN 6.8 g/dL (6.3-8.2)
--- NOTE | 2018-09-11 22:10 | RADIOLOGY REPORT (SQ) ---
EXAM DESCRIPTION: CT HEAD WITHOUT IV CONTRAST COMPLETED DATE/TME: 09/11/2018 21:26 CLINICAL HISTORY: 23 years, Male, seizure, hit head on left amish, pain COMPARISON: 06/13/2018 CT TECHNIQUE: 215 Images stored on PACS. All CT scanners at this facility use dose modulation, iterative reconstruction, and/or weight based dosing when appropriate to reduce radiation dose to as low as reasonably achievable (ALARA). [facility]: Dose Right [facility]: CareDose [facility]: Dose Right [facility]: Teradose 4D [facility]: [employer] LIMITATIONS: None. FINDINGS: The globes are intact. The paranasal sinuses and mastoid air cells are unremarkable. No displaced or depressed skull fracture. No intra or extra-axial hemorrhage. CT is limited for evaluation of acute infarct. No CT evidence for large or territorial acute infarct. No mass, mass effect, or midline shift IMPRESSION: Negative exam TECHNICAL DOCUMENTATION: Quality ID # 436: Final reports with documentation of one or more dose reduction techniques (e.g., Automated exposure control, adjustment of the mA and/or kV according to patient size, use of iterative reconstruction technique) copyright 2011 [employer]- All Rights Reserved
--- NOTE | 2018-09-11 22:30 | ER Document Report ---
ED Seizure - General Chief Complaint: Probable Seizure Stated Complaint: POSSIBLE SEIZURE Time Seen by Provider: 09/11/18 20:01 Primary Care Provider: BELGICA FREIRE MD [Primary Care Provider] - Follow up as needed Notes: 23-year-old male to the emergency department for evaluation of seizure. Known history of seizure disorder. Followed by Dr. vences in [place]. Takes his Keppra. Currently he is incarcerated for a probation violation. States that he had a seizure today and hit his head on the left temporal side of his head and he is complaining of a severe headache at this time. Reportedly witnessed se izure. Denies any other injuries. - HPI Patient complains to provider of: History of seizures Quality of pain: Achy Severity: Moderate Pain Level: 2 Continued on arrival to ED: No Can details of seizure be obtained/verified: Yes Episode witnessed (by whom): Yes Current seizure medications: Keppra Preceding symptoms/context: Other - Recent incarceration Injuries: Head Associated Symptoms: Blow to head, Confusion - Related Data Allergies/Adverse Reactions: No Known Allergies Allergy (Verified 09/25/16 19:50) Past Medical History - General Information source: Patient - Social History Smoking Status: Never Smoker Frequency of alcohol use: None Drug Abuse: None Lives with: Alone Family History: Reviewed & Not Pertinent Patient has suicidal ideation: No Patient has homicidal ideation: No Neurological Medical History: Reports: Hx Seizures Renal/ Medical History: Denies: Hx Peritoneal Dialysis Past Surgical History: Reports: Hx Orthopedic Surgery - left hand, Hx Tonsillectomy - adnoidectomy - Immunizations Hx Diphtheria, Pertussis, Tetanus Vaccination: Yes Review of Systems - Review of Systems Notes: Constitutional: denies: Chills, Diaphoresis, Fever, Malaise, Weakness EENT: denies: Eye discharge, Blurred vision, Tearing, Double vision, Nose congestion, Nose discharge, Throat swelling, Mouth pain Cardiovascular: denies: Palpitations, Heart racing, Orthopnea, Dyspnea, Chest pain Respiratory: denies: Cough, Hurts to breathe, Wheezing, Shortness of breath Gastrointestinal: denies: Abdominal pain, Diarrhea, Nausea, Vomiting, Black stools, bright red blood in stool Genitourinary: denies: Burning, Dysuria, Discharge, Frequency, Flank pain, Hematuria Musculoskeletal: denies: Joint pain, Joint swelling, Muscle pain, Muscle stiffness, back pain Hematologic/Lymphatic: denies: Anemia, Easy bleeding, Easy bruising, Blood clots Neurological/Psychological: denies: Confusion, Dementia, Depression, Loss of consciousness. Complaining of seizure and headache Skin: No lesions, no masses, no skin breakdown, no abscesses Physical Exam - Vital signs Vitals: Temp 98.2 F 09/11/18 19:06 Interpretation: Normal - General General appearance: Appears well, Alert - HEENT Head: Normocephalic, Atraumatic Eyes: Normal Pupils: PERRL Fundascopic: Normal Nasal: Normal Mucous membranes: Normal Pharynx: Normal Neck: Normal - Respiratory Respiratory status: No respiratory distress Chest status: Nontender Breath sounds: Normal Chest palpation: Normal - Cardiovascular Rhythm: Regular Heart sounds: Normal auscultation Murmur: No - Abdominal Inspection: Normal Distension: No distension Bowel sounds: Normal Tenderness: Nontender Organomegaly: No organomegaly - Back Back: Normal, Nontender - Extremities General upper extremity: Normal inspection, Nontender, Normal color, Normal ROM, Normal temperature General lower extremity: Normal inspection, Nontender, Normal color, Normal ROM, Normal temperature, Normal weight bearing. No: Gordo's sign - Neurological Neuro grossly intact: Yes Cognition: Normal Orientation: AAOx4 [place] Coma Scale Eye Opening: Spontaneous Emily Coma Scale Verbal: Oriented [place] Coma Scale Motor: Obeys Commands Emily Coma Scale Total: 15 Speech: Normal Motor strength normal: LUE, RUE, LLE, RLE Sensory: Normal - Psychological Associated symptoms: Normal affect, Normal mood - Skin Skin Temperature: Warm Skin Moisture: Dry Skin Color: Normal Course - Re-evaluation Re-evalutation: 09/11/18 22:29 Laboratory 09/11/18 09/11/18 21:42 21:42 WBC 8.6 RBC 4.76 Hgb 15.6 Hct 44.7 MCV 94 MCH 32.7 MCHC 34.8 RDW 12.6 Plt Count 253 Seg Neutrophils % 62.6 Lymphocytes % 28.1 Monocytes % 8.6 Eosinophils % 0.4 Basophils % 0.3 Absolute Neutrophils 5.4 Absolute Lymphocytes 2.4 Absolute Monocytes 0.7 Absolute Eosinophils 0.0 Absolute Basophils 0.0 Sodium 141.0 Potassium 4.1 Chloride 105 Carbon Dioxide 27 Anion Gap 9 BUN 10 Creatinine 0.84 Est GFR ( Amer) > 60 Est GFR (Non-Af Amer) > 60 Glucose 105 Calcium 9.7 Total Bilirubin 0.8 Direct Bilirubin 0.1 Neonat Total Bilirubin Not Reportable Neonat Direct Bilirubin Not Reportable Neonat Indirect Bili Not Reportable AST 23 ALT 48 Alkaline Phosphatase 44 Total Protein 6.[address] 09/11/18 21:26 IMPRESSION: Negative exam TECHNICAL DOCUMENTATION: Quality ID # [id number]: Final reports with documentation of one or more dose reduction techniques (e.g., Automated exposure control, adjustment of the mA and/or kV according to patient size, use of iterative reconstruction technique) copyright 2011 [employer]- All Rights Reserved Labs CT scan negative. No further issues. Already has his medications. Will D C at this time in stable condition. 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
[2018-09-11 22:57] VITALS: BP 115/76
== END 2018-09-11 22:57 ==
LOC: ER 18:55
DX: G40.301 Generalized idiopathic epilepsy and epileptic syndromes, not intractable, with status epilepticus (principal); Z79.899 Other long term (current) drug therapy; R51 Headache; X58.XXXA Exposure to other specified factors, initial encounter; Y92.149 Unspecified place in prison as the place of occurrence of the external cause
CPT/HCPCS: 36415; 70450; 80053; 85025; 99284